=== PATIENT | male | born 1990 | race American Indian/Alaskan Native ===

== ENCOUNTER 2017-07-11 11:48 | Emergency (ER) | payer OTHER ==
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
[2017-07-11 12:23] LABS: CHLORIDE,CL 104 mmol/L (101-111); SODIUM,NA 140 mmol/L (135-145)
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
== END 2017-07-11 13:23 | disposition home or self-care (01) ==
LOC: DL.ED 11:48
DX: S80.01XA Contusion of right knee, initial encounter (principal); S00.33XA Contusion of nose, initial encounter; V89.2XXA Person injured in unspecified motor-vehicle accident, traffic, initial encounter; Y92.410 Unspecified street and highway as the place of occurrence of the external cause
CPT/HCPCS: 36415; 73562; 80053; 85025; 99284; G0480

== ENCOUNTER 2022-01-06 21:31 | Emergency (ER) | payer MEDICAID, MEDICARE, OTHER ==
[2022-01-06] MEDS ORDERED: Ketorolac 30 MG/ML SDV IM ONE (22:46)
[2022-01-06] MEDS ORDERED: Amoxicillin/Clavulanate K 875-125 MG Tab PO ONE (22:49)
== END 2022-01-06 23:05 | disposition home or self-care (01) ==
LOC: DL.ED 21:31
DX: L03.211 Cellulitis of face (principal); K04.7 Periapical abscess without sinus
CPT/HCPCS: 96372; 99283; A9270; J1885; 99281

== ENCOUNTER 2022-06-10 05:24 | Emergency (ER) | payer SELFPAY ==
[2022-06-10] MEDS ORDERED: Benzonatate 100 MG Cap PO ONE (05:25)
[2022-07-05 14:47] LABS: CORONAVIRUS COVID-19 NAA NEGATIVE (NEGATIVE); RESPIRATORY SYNCYTIAL VIR NAA NEGATIVE (NEGATIVE)
== END 2022-06-10 21:19 | disposition home or self-care (01) ==
LOC: DL.ED 05:24
DX: J06.9 Acute upper respiratory infection, unspecified (principal)
CPT/HCPCS: 0241U; 71045; 99285